=== PATIENT | female | born 1965 | race Caucasian/White ===

== ENCOUNTER 2023-07-04 13:53 | Emergency (ER) | payer OTHER ==
[2023-07-04] MEDS ORDERED: Iopamidol-370 76% 500 ML MDV (1 ML CHARGE) ONE (14:10)
[2023-07-04] MEDS ORDERED: Metoclopramide HCl 10 MG/2 ML VIAL ONE (14:32)
[2023-07-04] MEDS ORDERED: Famotidine/PF 20 mg/2ml Vial ONE (14:32)
[2023-07-04 15:08] LABS: #Basophils 0.1 thou/uL (0.0-0.2); #Eosinphils 0.2 thou/uL (0.0-0.7); #Neutrophils 5.9 thou/uL (1.40-6.50); %Basophils 0.7 % (0.0-1.0); %Eosinophils 2.8 % (0.0-10.0); %Lymphocytes 16.8 % (21.0-51.0); %Monocytes 11.4 % (0.0-10.0); %Neutrophils 68.2 % (42.0-75.0); Hematocrit 46.4 % (36.0-47.0); Hemoglobin 15.7 g/dL (12.0-16.0); Mean Corpuscular HGB CONC 33.8 g/dL (32.0-36.0); Mean Corpuscular Hemoglobin 31.8 pg (27.0-31.0); Mean Corpuscular Volume 93.9 fl (78.0-98.0); Mean Platelet Volume 10.2 fL (7.4-10.4); Platelet Count 356 10x3/uL (130-400); RBC Distribution Width 13.4 % (11.5-14.5); Red Blood Cell (RBC) Count 4.94 mill/uL (4.20-5.40); White Blood Cell (WBC) Count 8.7 10x3/uL (4.8-10.8)
[2023-07-04 15:45] LABS: Troponin I Less than 0.010 ng/mL (< 0.028)
[2023-07-04 16:57] LABS: ALT (SGPT) 17 U/L (8-55); AST (SGOT) 25 U/L (5-34); Albumin 4.2 g/dL (3.5-5.0); Alkaline Phosphatase 93 U/L (40-110); Anion Gap 20 mmol/L (10-20); BUN (Urea Nitrogen) 14 mg/dL (9.8-20.1); Bilirubin, Total 0.4 mg/dL (0.2-1.2); Calc. Creatinine Clearance 0 mL/min (70-130); Calcium 9.2 mg/dL (7.8-10.44); Carbon Dioxide 14 mmol/L (22-29); Chloride 105 mmol/L (98-107); Estimated GFR 69; Glucose 83 mg/dL (70-105); Lipase 21 U/L (8-78); Potassium 4.1 mmol/L (3.5-5.1); Protein, Total 7.2 g/dL (6.0-8.3); Sodium 135 mmol/L (136-145)
[2023-07-04] MEDS ORDERED: Lidocaine 2% Viscous Solution 10 ML, Aluminum & Magnesium Hydroxide 30 ML SSW SCH (18:45)
[2023-07-04 18:54] LABS: Troponin I Less than 0.010 ng/mL (< 0.028)
== END 2023-07-04 19:45 | disposition home or self-care (01) ==
LOC: ERS 13:53
DX: K20.90 Esophagitis, unspecified without bleeding (principal); F17.210 Nicotine dependence, cigarettes, uncomplicated
CPT/HCPCS: 36415; 71045; 71275; 74177; 80053; 83605; 83690; 83735; 84484; 85025; 93005; 96361; 96365; 96375; J2765; Q9967; S0028

== ENCOUNTER 2023-11-15 10:15 | Outpatient (CLI) | payer OTHER | END 2023-11-15 10:16 | disposition home or self-care (01) | LOC: PET 10:15 | PROVIDERS: ATTEND Internal Medicine | DX: C44.02 Squamous cell carcinoma of skin of lip (principal); C50.812 Malignant neoplasm of overlapping sites of left female breast | CPT/HCPCS: 78816; A9552 ==

== ENCOUNTER 2024-06-29 13:27 | Outpatient (CLI) | payer OTHER | END 2024-06-29 13:28 | disposition home or self-care (01) | LOC: BICMAMMO 13:27 | PROVIDERS: ATTEND Internal Medicine | DX: C50.812 Malignant neoplasm of overlapping sites of left female breast (principal); C44.02 Squamous cell carcinoma of skin of lip | CPT/HCPCS: 77066; G0279 ==